=== PATIENT | female | born 1975 | race Caucasian/White ===

== ENCOUNTER → 2018-07-01 10:16 | Outpatient (CLI) | payer OTHER, SELFPAY | PROVIDERS: Family Provider Family Medicine; PCP Family Medicine; Visit Provider Obstetrics & Gynecology | DX: Z12.31 Encounter for screening mammogram for malignant neoplasm of breast (principal) | CPT/HCPCS: 77063; 77067 ==

== ENCOUNTER → 2019-07-03 08:50 | Outpatient (CLI) | payer OTHER, SELFPAY ==
--- NOTE | 2019-07-03 08:53 | BI_ITS ---
MAMMOGRAPHY - BILATERAL SCREENING REASON FOR EXAM: Female, 44 years old. Routine annual screening examination. PERTINENT HISTORY: Non-contributory. TECHNIQUE: Digital bilateral breast farhan (3D mammographic acquisition) in the CC and MLO projections. 2-D mediolateral oblique (MLO) and craniocaudad (CC) views of both breasts were obtained. CAD: Full Field Digital Mammography with Computer Added Detection was performed. COMPARISON: Comparison is made with prior study dated July 01, 2018 and June 30, 2017. FINDINGS: Breast Composition: The breasts are heterogeneously dense, which may obscure small masses. There are no dominant masses or suspicious calcifications. No other significant abnormalities are identified. There has been no significant change since the prior study. BI/SCREEN MAMM (CAD) W/FARHAN BILAT IMPRESSION: Stable bilateral screening mammogram. Yearly follow-up mammogram recommended. (A) ASSESSMENT CATEGORY: BIRADS Category 1: Negative. A letter regarding these results will be sent to the patient by the facility within 30 days. Approximately 10% of breast cancers are not detected by mammography. A normal mammogram should not delay biopsy of a clinically suspicious abnormality. [id number] Electronically Signed: Jesus Chiang, at 11:19 EDT , Service support ,
== END ==
PROVIDERS: Family Provider Family Medicine; PCP Family Medicine; Referring Provider Obstetrics & Gynecology; Visit Provider Obstetrics & Gynecology
DX: Z12.31 Encounter for screening mammogram for malignant neoplasm of breast (principal)
CPT/HCPCS: 77063; 77067

== ENCOUNTER → 2019-09-26 15:15 | Outpatient (CLI) | payer OTHER, SELFPAY ==
[2019-09-26 15:01] VITALS: BMI 35.5
[2019-09-26 16:16] LABS: Follicle Stimulating Hormone 5.7 mIU/mL
== END ==
PROVIDERS: Family Provider Family Medicine; PCP Family Medicine; Referring Provider Nurse Practitioner Women's Health; Visit Provider Nurse Practitioner Women's Health
DX: R23.2 Flushing (principal)
CPT/HCPCS: 36415; 83001

== ENCOUNTER → 2020-04-01 | Outpatient (CLI) | payer OTHER, SELFPAY ==
[2020-04-01 12:09] VITALS: BMI 35.5
[2020-04-01 15:53] LABS: Absolute Lymphocyte Count 2.82 X10^3/uL (0.83-4.51); Absolute Neutrophil Count 4.2 X10^3/uL (2.0-7.7); Basophil# 0.06 X10^3/uL; Basophil% 0.8 % (0-1); Eosinophil# 0.25 X10^3/uL; Eosinophils% 3.1 % (0-5); Hematocrit 43.2 % (37-47); Hemoglobin 14.3 g/dL (12.0-15.0); Lymphocyte # 2.82 X10^3/ul (4.0); Lymphocyte % 35.5 % (19-41); Mean Corp Hgb Conc 33.1 g/dL (32-36); Mean Corpuscular Hgb 29.1 pg (27.0-32.0); Mean Platelet Vol. 9.6 fl (6.2-12.0); Monocyte# 0.59 X10^3/uL; Monocyte% 7.4 % (0-10); NRBC Flagged by Analyzer 0 % (0-5); Neutrophil # 4.21 X10^3/uL (2.7-7.7); Neutrophil % 52.9 % (47-70); Platelet Count 297 K/mm3 (150-450); RBC Distribution Width CV 13.1 % (11.6-14.6); RBC Distribution Width SD 41.5 fl (35.1-43.9); Red Blood Count 4.91 M/mm3 (4.2-5.4)
[2020-04-01 17:12] LABS: ALB/GLOB Ratio 1.1 RATIO (0.9-2.4); AST(SGOT) 20 U/L (15-37); Alanine Aminotransfer ALT/SGPT 48 U/L (13-56); Albumin, Serum 3.9 g/dL (3.2-5.0); Alkaline Phosphatase 90 U/L (45-117); Anion Gap 7 (5-15); BUN 16 mg/dL (7-18); Calcium,Total 9.3 mg/dL (8.5-10.1); Chloride 106 mmol/L (98-107); Creatinine, Serum 0.84 mg/dL (0.55-1.02); EST Glomerular Filtration Rate 77 mL/min (>60); Est Glom Filt Rate - Afr Amer 93 mL/min (>60); Ferritin 90 ng/mL (8-252); Free T3 2.6 pg/mL (2.18-3.98); Globulin 3.7 g/dL (2.2-4.2); Glucose 81 mg/dL (74-106); Potassium 3.9 mmol/L (3.5-5.1); Protein, Total 7.6 g/dL (6.4-8.2); Sodium Level 139 mmol/L (136-145); T4 Free Direct 0.65 ng/dL (0.76-1.46); Thyroid Stim Hormone (TSH) 0.32 uIU/mL (0.358-3.74)
[2020-04-01 17:13] LABS: Vitamin B12 420 pg/mL (211-911); Vitamin D,25 Hydroxy 26.9 ng/mL
== END | disposition home or self-care (01) ==
PROVIDERS: PCP Family Medicine; Referring Provider Internal Medicine Endocrinology, Diabetes & Metabolism; Visit Provider Internal Medicine Endocrinology, Diabetes & Metabolism
DX: E03.8 Other specified hypothyroidism (principal); E06.3 Autoimmune thyroiditis; E55.9 Vitamin D deficiency, unspecified; R25.2 Cramp and spasm; R20.2 Paresthesia of skin
CPT/HCPCS: 80053; 82306; 82607; 82728; 84439; 84443; 84481; 85025

== ENCOUNTER → 2020-05-13 11:05 | Outpatient (CLI) | payer OTHER, SELFPAY ==
[2020-04-01 12:09] VITALS: BMI 35.5
[2020-05-13 12:57] LABS: T4 Free Direct 1.17 ng/dL (0.76-1.46); Thyroid Stim Hormone (TSH) 6.98 uIU/mL (0.358-3.74)
== END ==
PROVIDERS: PCP Family Medicine; Referring Provider Internal Medicine Endocrinology, Diabetes & Metabolism; Visit Provider Internal Medicine Endocrinology, Diabetes & Metabolism
DX: E03.8 Other specified hypothyroidism (principal); E06.3 Autoimmune thyroiditis
CPT/HCPCS: 36415; 84439; 84443

== ENCOUNTER → 2020-07-04 12:15 | Outpatient (CLI) | payer OTHER, SELFPAY ==
[2020-04-01 12:09] VITALS: BMI 35.5
--- NOTE | 2020-07-04 12:15 | BI_ITS ---
MAMMOGRAPHY - BILATERAL SCREENING REASON FOR EXAM: Female, 45 years old. Routine annual screening examination. PERTINENT HISTORY: Non-contributory. TECHNIQUE: Digital bilateral breast farhan (3D mammographic acquisition) in the CC and MLO projections. 2-D mediolateral oblique (MLO) and craniocaudad (CC) views of both breasts were obtained. CAD: Full Field Digital Mammography with Computer Added Detection was performed. COMPARISON: Comparison is made with prior study dated 07/03/2019 and 07/01/2018. FINDINGS: Breast Composition: The breasts are heterogeneously dense, which may obscure small masses. There are no dominant masses or suspicious calcifications. No other significant abnormalities are identified. There has been no significant change since the prior study. BI/SCREEN MAMM (CAD) W/FARHAN BILAT IMPRESSION: Stable bilateral screening mammogram. Yearly follow-up mammogram recommended. (A) ASSESSMENT CATEGORY: BIRADS Category 1: Negative. A letter regarding these results will be sent to the patient by the facility within 30 days. Approximately 10% of breast cancers are not detected by mammography. A normal mammogram should not delay biopsy of a clinically suspicious abnormality. [id number] Electronically Signed: Jesus Chiang, at 13:42 EDT , Service support ,
== END ==
PROVIDERS: PCP Family Medicine; Referring Provider Nurse Practitioner Women's Health; Visit Provider Nurse Practitioner Women's Health
DX: Z12.31 Encounter for screening mammogram for malignant neoplasm of breast (principal)
CPT/HCPCS: 77063; 77067

== ENCOUNTER → 2020-11-20 12:30 | Outpatient (CLI) | payer OTHER, SELFPAY ==
[2020-04-01 12:09] VITALS: BMI 35.5
--- NOTE | 2020-11-20 12:33 | RAD_ITS ---
STUDY: X-RAY CHEST REASON FOR EXAM: Female, 45 years old. CHRONIC COUGH. PT THINKS SHE HAD COVID IN FE. HX OF ASTHMA, CHEST PRESSURE, FEELS UNABLE TO TAKE A DEEP BREATH TECHNIQUE: PA and lateral views of the chest. COMPARISON: None. FINDINGS: The lungs are clear and expanded. There is no demonstrated pleural abnormality. Normal size heart. Normal mediastinum and deena. Normal visualized pulmonary arteries. Normal visualized aortic arch and descending thoracic aorta. Normal visualized thoracic spine. Normal visualized ribs, clavicles, and shoulders. There is no demonstrated abnormality of the visualized soft tissue structures of the upper abdomen. RAD/Chest PA and Lateral IMPRESSION: Normal x-ray examination of the chest. Electronically Signed: Grzegorz Esquivel MD ([place]) at 13:37 EST , Service support ,
== END ==
PROVIDERS: PCP Family Medicine; Referring Provider Otolaryngology; Visit Provider Otolaryngology
DX: R05 Cough (principal); R06.01 Orthopnea
CPT/HCPCS: 71046

== ENCOUNTER → 2021-03-20 13:30 | Outpatient (CLI) | payer OTHER, SELFPAY ==
[2021-03-20 12:56] VITALS: BMI 38.8
[2021-03-20 15:45] LABS: Follicle Stimulating Hormone 7.9 mIU/mL
== END ==
PROVIDERS: PCP Family Medicine; Referring Provider Nurse Practitioner Women's Health; Visit Provider Nurse Practitioner Women's Health
DX: R23.2 Flushing (principal)
CPT/HCPCS: 36415; 83001

== ENCOUNTER → 2021-05-06 13:52 | Outpatient (CLI) | payer OTHER, SELFPAY ==
[2021-03-20 12:56] VITALS: BMI 38.8
--- NOTE | 2021-05-06 13:54 | US_ITS ---
STUDY: ULTRASOUND OF THE FEMALE PELVIS - COMPLETE REASON FOR EXAM: Female, 45 years old. bloating LMP: TECHNIQUE: Transabdominal and Transvaginal TECHNICAL QUALITY: Adequate. COMPARISON: None. FINDINGS: Uterus absent compatible with hysterectomy. The right ovary is visualized. The right ovary measures 4.3 x 2.8 x 2.5 cm. Simple cysts the largest measuring 1.6 x 1.6 cm. There is no visualized right adnexal mass or complex lesion. There is normal arterial and normal venous vascularity. The left ovary is visualized. The left ovary measures 2.8 x 1.3 x 1.4 cm. There is no left ovarian cyst or ovarian mass. There is no visualized left adnexal mass or complex lesion. There is normal arterial and normal venous vascularity. There is no fluid in the cul-de-sac. The pre void volume of the bladder was 327 ml. Polycystic ovary disease: No. US/Pelvic (Non ) IMPRESSION: Normal pelvis status post partial hysterectomy. Right ovarian cysts compatible with physiologic cysts. Electronically Signed: Jose Cardenas MD at 6:36 EDT , Service support ,
--- NOTE | 2021-05-06 13:54 | US_ITS ---
STUDY: ULTRASOUND OF THE FEMALE PELVIS - COMPLETE REASON FOR EXAM: Female, 45 years old. bloating LMP: TECHNIQUE: Transabdominal and Transvaginal TECHNICAL QUALITY: Adequate. COMPARISON: None. FINDINGS: Uterus absent compatible with hysterectomy. The right ovary is visualized. The right ovary measures 4.3 x 2.8 x 2.5 cm. Simple cysts the largest measuring 1.6 x 1.6 cm. There is no visualized right adnexal mass or complex lesion. There is normal arterial and normal venous vascularity. The left ovary is visualized. The left ovary measures 2.8 x 1.3 x 1.4 cm. There is no left ovarian cyst or ovarian mass. There is no visualized left adnexal mass or complex lesion. There is normal arterial and normal venous vascularity. There is no fluid in the cul-de-sac. The pre void volume of the bladder was 327 ml. Polycystic ovary disease: No. US/Transvaginal Non- IMPRESSION: Normal pelvis status post partial hysterectomy. Right ovarian cysts compatible with physiologic cysts. Electronically Signed: Jose Cardenas MD at 6:36 EDT , Service support ,
== END ==
PROVIDERS: PCP Family Medicine; Referring Provider Nurse Practitioner Women's Health; Visit Provider Nurse Practitioner Women's Health
DX: R14.0 Abdominal distension (gaseous) (principal)
CPT/HCPCS: 76830; 76856

== ENCOUNTER → 2021-07-07 15:11 | Outpatient (CLI) | payer OTHER, SELFPAY ==
[2021-03-05 15:48] VITALS: BMI 35.5
[2021-03-20 12:56] VITALS: BMI 38.8
--- NOTE | 2021-07-07 15:15 | BI_ITS ---
MAMMOGRAPHY - BILATERAL SCREENING REASON FOR EXAM: Female, 46 years old. Routine annual screening examination. PERTINENT HISTORY: Non-contributory. TECHNIQUE: Digital bilateral breast farhan (3D mammographic acquisition) in the CC and MLO projections. 2-D mediolateral oblique (MLO) and craniocaudad (CC) views of both breasts were obtained. CAD: Full Field Digital Mammography with Computer Added Detection was performed. COMPARISON: Comparison is made with prior study 07/04/2020 and 07/03/2019. FINDINGS: Breast Composition: The breasts are heterogeneously dense, which may obscure small masses. Possible focal area of the increased density in the central deep aspect of the left breast. The patient will be recalled for additional views including 90 degree lateral and compressive craniocaudad views. No other significant abnormalities are identified. BI/SCRN MAMM (CAD)W/FARHAN BILAT IMPRESSION: Stable bilateral screening mammogram. Yearly follow-up mammogram recommended. (A) Recall Side: Left Breast ASSESSMENT CATEGORY: BIRADS Category 0: Incomplete. Need additional imaging evaluation. A letter regarding these results will be sent to the patient by the facility within 30 days. Approximately 10% of breast cancers are not detected by mammography. A normal mammogram should not delay biopsy of a clinically suspicious abnormality. [id number] Electronically Signed: Jesus Chiang MD at 15:59 EDT , Service support ,
== END ==
PROVIDERS: PCP Family Medicine; Referring Provider Nurse Practitioner Women's Health; Visit Provider Nurse Practitioner Women's Health
DX: Z12.31 Encounter for screening mammogram for malignant neoplasm of breast (principal)
CPT/HCPCS: 77063; 77067

== ENCOUNTER → 2021-07-10 14:22 | Outpatient (CLI) | payer OTHER, SELFPAY ==
[2021-03-20 12:56] VITALS: BMI 38.8
--- NOTE | 2021-07-10 14:24 | US_ITS ---
STUDY: ULTRASOUND BREAST - LEFT REASON FOR EXAM: Female, 46 years old. Abnormal screening mammogram. TECHNIQUE: Axial and longitudinal images of the LEFT breast were performed with a high resolution ultrasound transducer. # OF IMAGES: 39 COMPARISON: Comparison is made with prior mammogram dated 07/07/2021 and prior mammogram done earlier today. FINDINGS: LEFT Breast: Dense fibroglandular tissue. Focally dilated ducts at the 11 o''clock position of the breast at 3 cm from the nipple. US/Breast Limited Unilateral IMPRESSION: Focally dilated ducts. Routine mammographic follow up is recommended. ASSESSMENT CATEGORY: BIRADS Category 2: Benign. A letter regarding these results will be sent to the patient by the facility within 30 days. Electronically Signed: Jesus Chiang MD at 15:33 EDT , Service support ,
--- NOTE | 2021-07-10 14:24 | BI_ITS ---
MAMMOGRAPHY - UNILATERAL DIAGNOSTIC: LEFT BREAST REASON FOR EXAM: Female, 46 years old. Abnormal screening mammogram. PERTINENT HISTORY: Non-contributory. TECHNIQUE: Compression views of the left breast in the mediolateral oblique and craniocaudad views were obtained. CAD: Full Field Digital Mammography with Computer Added Detection was performed. COMPARISON: Comparison is made with prior mammogram dated 07/07/2021. FINDINGS: Breast Composition: The breasts are heterogeneously dense, which may obscure small masses. There are no dominant masses or suspicious calcifications. No abnormalities seen at this time. Correlation with ultrasound is recommended. No other significant abnormalities are identified. BI/DIAG MAMM W/CAD, UNILAT IMPRESSION: No mammographic abnormality is seen at this time. Correlation with ultrasound is recommended. ASSESSMENT CATEGORY: BIRADS Category 0: Incomplete. Need additional imaging evaluation. A letter regarding these results will be sent to the patient by the facility within 30 days. Approximately 10% of breast cancers are not detected by mammography. A normal mammogram should not delay biopsy of a clinically suspicious abnormality. Electronically Signed: Jesus Chiang MD at 15:18 EDT , Service support ,
== END ==
PROVIDERS: PCP Family Medicine; Referring Provider Nurse Practitioner Women's Health; Visit Provider Nurse Practitioner Women's Health
DX: R92.2 Inconclusive mammogram (principal)
CPT/HCPCS: 76642; 77065

== ENCOUNTER 2021-11-25 10:39 | Outpatient (CLI) | payer OTHER, SELFPAY ==
[2021-11-25 12:40] LABS: Absolute Lymphocyte Count 2.42 X10^3/uL (0.83-4.51); Absolute Neutrophil Count 5.3 X10^3/uL (2.0-7.7); Basophil# 0.07 X10^3/uL; Basophil% 0.8 % (0-1); Eosinophil# 0.29 X10^3/uL; Eosinophils% 3.3 % (0-5); Hematocrit 43.1 % (37-47); Hemoglobin 14.3 g/dL (12.0-15.0); Lymphocyte # 2.42 X10^3/ul (0.83-4.51); Lymphocyte % 27.9 % (19-41); Mean Corp Hgb Conc 33.2 g/dL (32-36); Mean Corpuscular Hgb 29.1 pg (27.0-32.0); Mean Corpuscular Volume 87.6 fL (81-99); Mean Platelet Vol. 9.1 fl (6.2-12.0); Monocyte# 0.54 X10^3/uL; Monocyte% 6.2 % (0-10); NRBC Flagged by Analyzer 0 % (0-5); Neutrophil # 5.31 X10^3/uL (2.7-7.7); Neutrophil % 61.2 % (47-70); Platelet Count 308 K/mm3 (150-450); RBC Distribution Width CV 12.8 % (11.6-14.6); Red Blood Count 4.92 M/mm3 (4.2-5.4); White Blood Count 8.7 K/mm3 (4.4-11.0)
[2021-11-25 13:04] LABS: ALB/GLOB Ratio 0.9 RATIO (0.9-2.4); AST(SGOT) 28 U/L (15-37); Alanine Aminotransfer ALT/SGPT 73 U/L (13-56); Albumin, Serum 3.6 g/dL (3.2-5.0); Alkaline Phosphatase 117 U/L (45-117); Anion Gap 9 (5-15); BUN 16 mg/dL (7-18); BUN/Creat Ratio 18.6 RATIO (10-20); Calcium,Total 8.9 mg/dL (8.5-10.1); Chloride 102 mmol/L (98-107); Creatinine, Serum 0.86 mg/dL (0.55-1.02); EST Glomerular Filtration Rate 75 mL/min (>60); Est Glom Filt Rate - Afr Amer 90 mL/min (>60); Ferritin 138 ng/mL (8-252); Globulin 4.1 g/dL (2.2-4.2); Glucose 110 mg/dL (74-106); Potassium 4.1 mmol/L (3.5-5.1); Protein, Total 7.7 g/dL (6.4-8.2); Sodium Level 138 mmol/L (136-145); Thyroid Stim Hormone (TSH) 1.74 uIU/mL (0.358-3.74)
[2021-11-26 14:01] LABS: Thyroid Peroxidase AB 39 IU/mL (0-34)
[2021-11-26 16:29] LABS: Anti-Nuclear Antibody Test Negative (.)
== END 2021-11-25 23:59 | disposition short-term general hospital (02) ==
LOC: MTLAB 10:41
PROVIDERS: PCP Family Medicine; Referring Provider Physician Assistant; Visit Provider Physician Assistant
DX: D64.9 Anemia, unspecified (principal); L70.0 Acne vulgaris; L71.8 Other rosacea
CPT/HCPCS: 36415; 80053; 82728; 84443; 85025; 86038; 86376

== ENCOUNTER → 2022-07-09 | Outpatient (CLI) | payer OTHER, SELFPAY ==
--- NOTE | 2022-07-09 15:51 | BI_ITS ---
MAMMOGRAPHY - BILATERAL SCREENING REASON FOR EXAM: Female, 47 years old. Routine annual screening examination. PERTINENT HISTORY: Non-contributory. TECHNIQUE: Digital bilateral breast farhan (3D mammographic acquisition) in the CC and MLO projections. 2-D mediolateral oblique (MLO) and craniocaudad (CC) views of both breasts were obtained. CAD: Full Field Digital Mammography with Computer Added Detection was performed. COMPARISON: Comparison is made with prior study dated 07/07/2021 and 07/04/2020. FINDINGS: Breast Composition: The breasts are heterogeneously dense, which may obscure small masses. Persistent asymmetry of breast tissue or more breast tissue is seen in the central upper aspect of the left breast. Correlation with ultrasound recommended. No other significant abnormalities are identified. BI/SCRN MAMM (CAD)W/FARHAN BILAT IMPRESSION: Stable examination. Correlation with ultrasound of the left breast recommended. ASSESSMENT CATEGORY: BIRADS Category 0: Incomplete. Need additional imaging evaluation. A letter regarding these results will be sent to the patient by the facility within 30 days. Approximately 10% of breast cancers are not detected by mammography. A normal mammogram should not delay biopsy of a clinically suspicious abnormality. [id number] Electronically Signed: Jesus Chiang MD at 8:14 EDT ,
== END | disposition home or self-care (01) ==
LOC: OPBI 15:48
PROVIDERS: PCP Family Medicine; Visit Provider Nurse Practitioner Women's Health
DX: Z12.31 Encounter for screening mammogram for malignant neoplasm of breast (principal); N64.89 Other specified disorders of breast
CPT/HCPCS: 77063; 77067

== ENCOUNTER → 2022-07-14 | Outpatient (CLI) | payer OTHER, SELFPAY ==
--- NOTE | 2022-07-14 15:05 | US_ITS ---
STUDY: ULTRASOUND BREAST - LEFT REASON FOR EXAM: Female, 47 years old. Asymmetrical density in the central upper aspect of the left breast. TECHNIQUE: Axial and longitudinal images of the LEFT breast were performed with a high resolution ultrasound transducer. # OF IMAGES: 33 COMPARISON: Comparison is made with prior sonogram dated 07/10/2021 and prior mammogram dated 07/09/2022. FINDINGS: LEFT Breast: At the 12 o''clock position of breast 3 cm from nipple, is a cluster of cysts measuring 1.5 cm x 1 cm. Is also evidence of dilated ducts. US/Breast Limited Unilateral IMPRESSION: 1. Dilated ducts and cluster of cysts. ASSESSMENT CATEGORY: BIRADS Category 2: Benign. A letter regarding these results will be sent to the patient by the facility within 30 days. Electronically Signed: Jesus Chiang MD at 9:03 EDT ,
== END | disposition home or self-care (01) ==
LOC: OPUS 15:02
PROVIDERS: PCP Family Medicine; Visit Provider Nurse Practitioner Women's Health
DX: N60.02 Solitary cyst of left breast (principal)
CPT/HCPCS: 76642

== ENCOUNTER 2023-06-15 06:33 | Day surgery (SDC) | payer OTHER, SELFPAY ==
--- NOTE | 2023-06-15 | GASB_PTH ---
PATIENT: KIERSTEN HOOKER LOC: EN U#:[id number] AGE/SX: 48/F ROOM: RE06/15/[address]: Dr. Zack Villanueva MD : 1975 BED: DIS: 06/15/2023 SPEC #: [id number] RECD: 06/15/23 10:42 STATUS: ERIC CHASEClaudia #: [id number] MANDI: 06/15/23 00:[address]: Zack Villanueva DEPT: SURGICAL PATHOLOGY RECD BY: Amor Pineda ENTERED: 06/15/23 10:42 SP TYPE: Gastric Bx OTHR DR: Dr. Gerardo Godoy MD Tissues: Gastric mucous membrane Procedures: Surgery Specimen Level IV HEADER OPERATION: Colonoscopy, EGD ([facility]), PH probe placement, biopsy PRE-OP DIAGNOSIS: Screening, GERD TISSUE SUBMITTED: Antrum biopsy for histo and H. pylori MICROSCOPIC DIAGNOSIS Antrum, biopsy: Mild gastritis. See comment. SJ:wiley 06/16/2023 COMMENT Immunohistochemistry ([id number]) supports the above diagnosis. MICROSCOPIC DESCRIPTION Slides are reviewed. The specimen shows fragments of gastric mucosa with chronic inflammatory cell infiltrates in the lamina propria consisting of lymphocytes and plasma cells, consistent with mild chronic gastritis. GROSS DESCRIPTION Received in fixative is one container labeled with the patient's name and designated antrum biopsy. The specimen consists of two irregular fragments of light khan soft tissue that in aggregate measure 0.6 x 0.3 x 0.1 cm. The specimen is totally submitted in one cassette. / ANGEL LUIS:wiley 06/15/2023 TC:3 CPT: 30349
--- NOTE | 2023-06-15 06:41 | HP.PCM_ITS ---
History and Physical Date of Admission: 06/15/23 Intake Vital Signs 05/12/2314:27 Height 5 ft 5 in Weight: 222 lb 8 oz BMI 37.0 BP 136/84 H Blood Pressure Location Lt brachial Position Sitting Respiration 18 Pulse 65 Pulse Source Monitor Pulse Oximetry (%) 100 Oxygen Delivery Method room air Intake Visit Reasons: C-Scope & EGD Chief Complaint: cscope/EGD consult Principal Administrative Clerk Required: No Is patient in pain?: No Allergies Penicillins Allergy (Verified 05/12/23 14:30) Unknown Medications albuterol sulfate 90 mcg/actuation aerosol inhaler 2 puff inhalation Q6H PRN PRN Asthma 03/24/16 [History Confirmed 05/12/23] esomeprazole magnesium 40 mg capsule,delayed release 40 mg PO QHS 03/24/16 [History Confirmed 05/12/23] fluticasone propionate 230 mcg-salmeterol 21 mcg/actuation HFA inhaler 2 puff inhalation BID 04/01/20 [History Confirmed 05/12/23] burburine PO 03/23/22 [History Confirmed 04/21/23] cholecalciferol (vitamin D3) 50 mcg (2,000 unit) capsule 50 mcg PO DAILY 03/23/22 [History Confirmed 05/12/23] copper gluconate 2 mg capsule 2 mg PO DAILY 03/23/22 [History Confirmed 05/12/23] magnesium oxide 500 mg capsule 500 mg PO DAILY 03/23/22 [History Confirmed 05/12/23] thyroid (pork) 180 mg tablet ([place] Thyroid) 240 mg PO DAILY 03/23/22 [History Confirmed 05/12/23] vitamin K2 45 mcg capsule 45 mcg PO DAILY 03/23/22 [History Confirmed 05/12/23] zinc 50 mg tablet 50 mg PO DAILY 03/23/22 [History Confirmed 05/12/23] semaglutide 1 mg/dose (2 mg/1.5 mL) subcutaneous pen injector (Ozempic) 1 mg subcut QWEEK 04/21/23 [History Confirmed 05/12/23] [facility] Medical History (Updated 05/12/23 @ 14:[address] 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 She is also here for screening colonoscopy. She reports that she has had severe reflux for years only [employer] works. She describes reflux as well as epigastric pain. She says she has a lot of stress. She denies nausea or vomiting. She denies any blood in her stool. ROS General General: Yes weight change and fatigue; No appetite, colon cancer, breast cancer or weakness HEENT HEENT: Yes difficulty swallowing, eye injury, eye surgery and swollen glands; No hoarseness Endo Endocrine: Yes thyroid disease; No diabetes mellitus, thyroid cancer, Hair loss, heat intolerance or cold intolerance Skin Skin: No rash or changing moles Breast Breast: No left breast lump, right breast lump, nipple discharge, breast pain, abnormal mammogram, abnormal US or breast enlargement Musc Musculoskeletal: Yes back problems; No arthritis, rheumatoid arthritis, gout or joint pain Cardio Cardiovascular: No murmur, pacemaker, heart disease, atrial fibrillation, high blood pressure, heart attack, heart stent, palpitations, shortness of breat with exertion or chest pain Psych Psychiatric: No depression, anxiety or hearing voices Resp Respiratory: No shortness of breath, No sleep apnea, No cough, No COPD, Yes asthma, No emphysema and No wheezing Gastro Gastrointestinal: No abdominal pain, No nausea or vomiting, No diarrhea, No constipation, No blood in stool, Yes acid reflux, No hemorrhoids, No ulcers, No gallbladder problem and No black,tarry stools Deejay Hematologic: No blood thinners, No blood disorders, No bleeding, No anemia and No blood clots Neuro Neurologic: No system reviewed and no additional complaints, except as documented, No as per HPI, No abnormal gait, No abnormal hearing, No abnormal movements, No abnormal speech, No behavioral changes, No burning sensations, No confusion, No convulsions, No disequilibrium, No dizziness, No localized weakness, No frequent falls, No headache(s), No lack of coordination, No loss of vision, No memory loss, No numbness, No other visual disturbances, No radicular pain, No restless legs, No sensory deficit, No syncope, No tingling, No tremor(s), No weakness and No other Exam Const General: cooperative Orientation: alert and oriented x3 HENIN Head: normal to inspection Neck Neck: normal visual inspection and full ROM Chest Chest palpation & inspection: normal inspection of the chest Resp Effort & Inspection: normal respiratory effort Auscultation: clear to auscultation bilaterally Cardio Rate: regular rate Rhythm: regular rhythm GI Inspection: non-distended Palpation: soft and nontender Skin General: no rashes or lesions noted Neuro General: patient alert and patient oriented x3 Extrem General: full ROM Psych Appearance: grossly normal Mental Status: mental status grossly normal Assessment and Plan Assessment and Plan (1) Screen for colon cancer: Status: Acute (2) GERD (gastroesophageal reflux disease): Status: Acute Qualifiers: Esophagitis presence: esophagitis presence not specified Qualified Code(s): K21.9 - Gastro-esophageal reflux disease without esophagitis Orders: Orders Colonoscopy Today EGD with 48 pH probe Today Plan Patient reports she has severe GERD and takes Nexium daily. She reports she now cannot get off Nexium and any other PPIs she tries does not work. I will perform EGD and I briefly discussed fundoplication so I will perform a pH probe as well as part of the preoperative work-up. Patient is also due for screening colonoscopy so I will order that for her as she has never had a colonoscopy. I explained endoscopy in detail to the patient. I explained the risks including but not limited to stroke or heart attack with anesthesia, perforation of the GI tract, bleeding, infection. I explained that any of these could necessitate further emergency surgery. The patient understands and all questions were answered sufficiently. The patient wishes to proceed with procedure. Zack Villanueva MD Pager: [facility] [address] [place] [address], [address] [place] [address] Office: I have seen and examined the patient and reviewed the H&P, there are no changes since prior exam
[2023-06-15 07:10] VITALS: BP 140/77; PULSE 84; RESP 16; TEMP 36.4; O2SAT 95; BMI 36.0
[2023-06-15] MEDS: Lactated Ringers 1,000 ML 15 ML IV (07:14)
--- NOTE | 2023-06-15 07:30 | IMM_PTH ---
PATIENT: KIERSTEN HOOKER LOC: EN U#:[id number] AGE/SX: 48/F ROOM: RE06/15/[address]: Dr. Zack Villanueva MD : 1975 BED: DIS: 06/15/2023 SPEC #: [id number] RECD: 06/15/23 13:46 STATUS: ERIC REClaudia #: [id number] MANDI: 06/15/23 07:[address]: Zack Villanueva DEPT: IMMUNOHISTOCHEMISTRY RECD BY: Claudia Leigh ENTERED: 06/15/23 13:47 SP TYPE: IMMUNO OTHR DR: Dr. Gerardo Godoy MD Tissues: Stomach, NOS Procedures: H Pylori (initial) PHYSICIAN & INSTITUTION [place] [id number] SPECIMEN INFORMATION: Tissue Source: Antrum Clinical Info: Screening, GERD Specimen Number: [id number] CPT code: 80660 METHODOLOGY: Deparaffinized sections of prefer/formalin-fixed tissue or PAP/DQ stained slides are incubated with monoclonal/polyclonal antibodies/oligonucleotide probes. Localization is made via biotin free immunoperoxidase method. Appropriate controls are performed and reacted as expected. Results on target cell population are indicated in the following table: RESULTS: ANTIBODY / CLONE RESULT H Pylori (polyclonal) negative These tests were developed and their performance characteristics determined by [facility]. They may not have been cleared or approved by the U.S. Food and Drug Administration. The FDA has determined that such clearance or approval is not necessary. The above immunohistochemical/dualISH markers are ordered and reviewed by the Pathologist. INTERPRETATION: Antrum, biopsy: Negative for Helicobacter pylori organisms. SJ:wiley 06/17/2023
[2023-06-15 08:05] VITALS: BP 108/68; BP 140/77; PULSE 91; RESP 16; TEMP 36.3; O2SAT 95
--- NOTE | 2023-06-15 08:09 | OP.CCLET_ITS ---
06/15/2023 Gerardo Godoy Re : Upper GI endoscopy procedure for Milagro Rae Dear Jayne This procedure was performed on Thursday, June 15, 2023. My impressions and recommendations are as follows: Impressions : - Normal esophagus. - Normal stomach. - Normal examined duodenum. - Small hiatal hernia. - Biopsies were taken with a cold forceps for Helicobacter pylori testing. - The [place] pH capsule was positioned 29 cm from the incisors, which was 6 cm proximal to the GE junction. Recommendations : - Discharge patient to home. - Resume previous diet. - Continue present medications. My findings are described in the full procedure note, which is enclosed. If I can be of further assistance, please feel free to contact me at Doctor phone number(s): , Work: . Sincerely, Zack Villanueva MD 06/15/2023 8:08:56 AM This report has been signed electronically.
--- NOTE | 2023-06-15 08:09 | OP.EGD_ITS ---
Patient Name: Milagro Rae Procedure Date: 06/15/2023 7:31 AM Date of : 1975 Age: 48 Procedure: Upper GI endoscopy Indications: Reflux esophagitis, Suspected gastro-esophageal reflux disease Providers: Zack Villanueva MD Referring MD: Gerardo Godoy Medicines: Monitored Anesthesia Care Patient Profile: This is a 48 year old female. Refer to note in patient chart for documentation of history and physical. Complications: No immediate complications. Estimated blood loss: Minimal. Procedure: Pre-Anesthesia Assessment: - Prior to the procedure, a History and Physical was performed, and patient medications and allergies were reviewed. The patient's tolerance of previous anesthesia was also reviewed. The risks and benefits of the procedure and the sedation options and risks were discussed with the patient. All questions were answered, and informed consent was obtained. Prior Anticoagulants: The patient has taken no previous anticoagulant or antiplatelet agents. After reviewing the risks and benefits, the patient was deemed in satisfactory condition to undergo the procedure. After obtaining informed consent, the endoscope was passed under direct vision. Throughout the procedure, the patient's blood pressure, pulse, and oxygen saturations were monitored continuously. The Endoscope was introduced through the mouth, and advanced to the third part of duodenum. The upper GI endoscopy was accomplished without difficulty. The patient tolerated the procedure well. Scope In: 7:36:25 AM Scope Out: 7:40:45 AM Total Procedure Duration Time 0 hours 4 minutes 20 seconds Findings: The esophagus was normal. The stomach was normal. The examined duodenum was normal. A small hiatal hernia was present. Biopsies were taken with a cold forceps in the gastric antrum for Helicobacter pylori testing. The [place] capsule with delivery system was introduced through the mouth and advanced into the esophagus, such that the [place] pH capsule was positioned 29 cm from the incisors, which was 6 cm proximal to the GE junction. Suction was applied to the well of the [place] pH capsule to suck in the adjacent mucosa of the esophagus using the external vacuum pump set at a minimum vacuum pressure of 550 mmHg for 30 seconds. The [place] pH capsule was then deployed by depressing the plunger on top of the handle to advance the locking pin into the mucosa, thereby attaching the capsule to the esophagus. The plunger was then rotated a quarter turn clockwise to release the capsule from the delivery system. The delivery system was then withdrawn. Endoscopy was utilized for probe placement and diagnostic evaluation. Impression: - Normal esophagus. - Normal stomach. - Normal examined duodenum. - Small hiatal hernia. - Biopsies were taken with a cold forceps for Helicobacter pylori testing. - The [place] pH capsule was positioned 29 cm from the incisors, which was 6 cm proximal to the GE junction. Recommendation: - Discharge patient to home. - Resume previous diet. - Continue present medications. Procedure Code(s): --- Professional --- 67883, Esophagogastroduodenoscopy, flexible, transoral; with biopsy, single or multiple Diagnosis Code(s): --- Professional --- K44.9, Diaphragmatic hernia without obstruction or gangrene K21.0, Gastro-esophageal reflux disease with esophagitis CPT copyright 2017 [employer]. All rights reserved. The codes documented in this report are preliminary and upon remote coders review may be revised to meet current compliance requirements. Zack Villanueva MD 06/15/2023 8:08:56 AM This report has been signed electronically. Number of Addenda: 0 Note Initiated On: 06/15/2023 7:31 AM
[2023-06-15 08:10] VITALS: BP 105/73; BP 140/77; PULSE 80; RESP 16; O2SAT 96
--- NOTE | 2023-06-15 08:11 | OP.COLON_ITS ---
Patient Name: Milagro Rae Procedure Date: 06/15/2023 7:43 AM Date of : 1975 Age: 48 Procedure: Colonoscopy Indications: Screening for colorectal malignant neoplasm Providers: Zack Villanueva MD Referring MD: Gerardo Godoy Medicines: Monitored Anesthesia Care Patient Profile: This is a 48 year old female. Refer to note in patient chart for documentation of history and physical. Last Colonoscopy: none. The patient's first colonoscopy is today. Complications: No immediate complications. Procedure: Pre-Anesthesia Assessment: - Prior to the procedure, a History and Physical was performed, and patient medications and allergies were reviewed. The patient's tolerance of previous anesthesia was also reviewed. The risks and benefits of the procedure and the sedation options and risks were discussed with the patient. All questions were answered, and informed consent was obtained. Prior Anticoagulants: The patient has taken no previous anticoagulant or antiplatelet agents. After reviewing the risks and benefits, the patient was deemed in satisfactory condition to undergo the procedure. After I obtained informed consent, the scope was passed under direct vision. Throughout the procedure, the patient's blood pressure, pulse, and oxygen saturations were monitored continuously. The pediatric colonoscope was introduced through the anus and advanced to the cecum, identified by appendiceal orifice and ileocecal valve. The colonoscopy was performed without difficulty. The patient tolerated the procedure well. The quality of the bowel preparation was adequate. Scope In: 7:44:53 AM Scope Withdrawal Time 0 hours 6 minutes 15 seconds Scope Out: 7:59:14 AM Total Procedure Duration Time 0 hours 14 minutes 21 seconds Findings: The entire examined colon appeared normal on direct and retroflexion views. Impression: - The entire examined colon is normal on direct and retroflexion views. - No specimens collected. Recommendation: - Discharge patient to home. - Resume previous diet. - Continue present medications. - Repeat colonoscopy in 10 years for screening purposes. Procedure Code(s): --- Professional --- 27848, Colonoscopy, flexible; diagnostic, including collection of specimen(s) by brushing or washing, when performed (separate procedure) Diagnosis Code(s): --- Professional --- Z12.11, Encounter for screening for malignant neoplasm of colon CPT copyright 2017 [employer]. All rights reserved. The codes documented in this report are preliminary and upon director of religious activities review may be revised to meet current compliance requirements. Zack Villanueva MD 06/15/2023 8:10:43 AM This report has been signed electronically. Number of Addenda: 0 Note Initiated On: 06/15/2023 7:43 AM
--- NOTE | 2023-06-15 08:11 | OP.CCLET_ITS ---
06/15/2023 Gerardo Godoy Re : Colonoscopy procedure for Milagro Rae Dear Jayne This procedure was performed on Thursday, June 15, 2023. My impressions and recommendations are as follows: Impressions : - The entire examined colon is normal on direct and retroflexion views. - No specimens collected. Recommendations : - Discharge patient to home. - Resume previous diet. - Continue present medications. - Repeat colonoscopy in 10 years for screening purposes. My findings are described in the full procedure note, which is enclosed. If I can be of further assistance, please feel free to contact me at Doctor phone number(s): , Work: . Sincerely, Zack Villanueva MD 06/15/2023 8:10:43 AM This report has been signed electronically.
[2023-06-15 08:15] VITALS: BP 103/68; BP 140/77; PULSE 74; RESP 16; O2SAT 97
[2023-06-15 08:19] VITALS: BP 104/61; BP 140/77; PULSE 74; RESP 16; TEMP 36.5; O2SAT 96
[2023-06-15 08:25] VITALS: BP 140/77
== END 2023-06-15 08:53 | disposition home or self-care (01) ==
LOC: EN 06:33 → AC 06:34
PROVIDERS: PCP Family Medicine; Referring Provider Family Medicine; Visit Provider Surgery
PROC: 0DJD8ZZ Inspection of Lower Intestinal Tract, Via Natural or Artificial Opening Endoscopic (ICD-10-PCS; CPT 45378; principal; 2023-06-15 07:25)
DX: Z12.11 Encounter for screening for malignant neoplasm of colon (principal); K21.00 Gastro-esophageal reflux disease with esophagitis, without bleeding; K29.70 Gastritis, unspecified, without bleeding; K44.9 Diaphragmatic hernia without obstruction or gangrene; E06.3 Autoimmune thyroiditis; Z79.899 Other long term (current) drug therapy; Z87.891 Personal history of nicotine dependence; Z80.0 Family history of malignant neoplasm of digestive organs
CPT/HCPCS: 45378; 43235; 88305; 88342; J7120; J2405

== ENCOUNTER 2023-07-02 08:34 | Day surgery (SDC) | payer OTHER, SELFPAY ==
[2023-07-02 08:47] VITALS: BP 110/82; PULSE 83; RESP 15; TEMP 36.9; O2SAT 97
== END 2023-07-02 23:59 | disposition home or self-care (01) ==
PROVIDERS: PCP Family Medicine; Referring Provider Surgery; Visit Provider Surgery
PROC: F00ZJWZ Instrumental Swallowing and Oral Function Assessment using Swallowing Equipment (ICD-10-PCS; CPT 43235; principal; 2023-07-02 10:25)
DX: K21.9 Gastro-esophageal reflux disease without esophagitis (principal)
CPT/HCPCS: 91010

== ENCOUNTER → 2023-07-16 | Outpatient (CLI) | payer OTHER, SELFPAY ==
--- NOTE | 2023-07-16 15:18 | BI_ITS ---
MAMMOGRAPHY - BILATERAL SCREENING REASON FOR EXAM: Female, 48 years old. Routine annual screening examination. PERTINENT HISTORY: Non-contributory. TECHNIQUE: Digital bilateral breast farhan (3D mammographic acquisition) in the CC and MLO projections. 2-D mediolateral oblique (MLO) and craniocaudad (CC) views of both breasts were obtained. CAD: Full Field Digital Mammography with Computer Added Detection was performed. COMPARISON: Comparison is made with prior study dated July 09, 2022 and July 10, 2021. FINDINGS: Breast Composition: The breasts are heterogeneously dense, which may obscure small masses. Questionable 1.5 cm x 1 cm nodular density in the upper deep central portion of the left breast. Correlation with ultrasound is recommended. No other significant abnormalities are identified. BI/SCRN MAMM (CAD)W/FARHAN BILAT IMPRESSION: Possible 1.5 cm x 1 7 nodular density in the upper deep central portion of the left breast. Correlation with ultrasound is recommended. ASSESSMENT CATEGORY: BIRADS Category 0: Incomplete. Need additional imaging evaluation. A letter regarding these results will be sent to the patient by the facility within 30 days. Approximately 10% of breast cancers are not detected by mammography. A normal mammogram should not delay biopsy of a clinically suspicious abnormality. [id number] Electronically Signed: Jesus Chiang MD at 12:37 EDT ,
== END | disposition home or self-care (01) ==
LOC: OPBI 15:17
PROVIDERS: PCP Family Medicine; Referring Provider Nurse Practitioner Women's Health; Visit Provider Nurse Practitioner Women's Health
DX: Z12.31 Encounter for screening mammogram for malignant neoplasm of breast (principal)
CPT/HCPCS: 77063; 77067

== ENCOUNTER → 2023-07-21 | Outpatient (CLI) | payer OTHER, SELFPAY ==
--- NOTE | 2023-07-21 15:01 | US_ITS ---
STUDY: ULTRASOUND BREAST - LEFT REASON FOR EXAM: Female, 48 years old. Abnormal screening mammogram. TECHNIQUE: Axial and longitudinal images of the LEFT breast were performed with a high resolution ultrasound transducer. # OF IMAGES: 71 COMPARISON: Comparison is made with prior mammogram dated July 16, 2023 and prior ultrasound of the left breast dated July 14, 2022. FINDINGS: LEFT Breast: There is a 1.1 cm x 1.3 cm x 0.8 cm cluster of septated cysts at the 11:00 addition of the breast at 4 cm from nipple. This is essentially unchanged. There is also evidence of a 6 mm x 6 mm x 4 mm cyst at the 9:00 position of the breast at 4 cm from nipple. US/Breast Limited Unilateral IMPRESSION: 2 small cysts are seen in the upper outer quadrant of the left breast. ASSESSMENT CATEGORY: BIRADS Category 2: Benign. A letter regarding these results will be sent to the patient by the facility within 30 days. Electronically Signed: Jesus Chiang MD at 10:59 EDT ,
== END | disposition home or self-care (01) ==
LOC: OPUS 14:59
PROVIDERS: PCP Family Medicine; Referring Provider Nurse Practitioner Women's Health; Visit Provider Nurse Practitioner Women's Health
DX: N63.20 Unspecified lump in the left breast, unspecified quadrant (principal)
CPT/HCPCS: 76642

== ENCOUNTER 2023-07-23 09:38 | Observation (INO) | payer OTHER, SELFPAY ==
[2023-07-19 15:07] LABS: Hematocrit 43.1 % (37-47); Mean Corp Hgb Conc 32.5 g/dL (32-36); Mean Corpuscular Volume 89.4 fL (81-99); Mean Platelet Vol. 9.3 fl (6.2-12.0); Platelet Count 338 K/mm3 (150-450); RBC Distribution Width CV 12.3 % (11.6-14.6); RBC Distribution Width SD 40.8 fl (35.1-43.9); Red Blood Count 4.82 M/mm3 (4.2-5.4); White Blood Count 9.9 K/mm3 (4.4-11.0)
[2023-07-19 15:16] LABS: Partial Thromboplast Time 29.4 Seconds (24.1-36.2)
[2023-07-19 16:00] LABS: AST(SGOT) 25 U/L (15-37); Alanine Aminotransfer ALT/SGPT 39 U/L (13-56); Albumin, Serum 3.9 g/dL (3.2-5.0); Alkaline Phosphatase 83 U/L (45-117); Bilirubin, Direct 0.09 mg/dL (0.00-0.30); Globulin 3.6 g/dL (2.2-4.2); Protein, Total 7.5 g/dL (6.4-8.2); Thyroid Stim Hormone (TSH) 0.07 uIU/mL (0.358-3.74)
[2023-07-23] VITALS (12 sets, daily range): BP systolic 102–126; BP diastolic 59–79; PULSE 52–92; RESP 14–18; TEMP 36.2–36.9; O2SAT 94–100; BMI 35.8
--- NOTE | 2023-07-23 06:32 | PCM.HP.BLA ---
History and Physical Date of Admission: 07/23/23 Intake Vital Signs 06/15/2307:10 Height 5 ft 5 in Intake Visit Reasons: 2 WK F/U SCOPES Chief Complaint: 2 week f/u scopes Is patient in pain?: No Allergies Penicillins Allergy (Verified 06/30/23 08:58) Unknown Medications albuterol sulfate 90 mcg/actuation aerosol inhaler 2 puff inhalation Q6H PRN PRN Asthma 03/24/16 [History Confirmed 06/30/23] esomeprazole magnesium 40 mg capsule,delayed release 40 mg PO QHS 03/24/16 [History Confirmed 06/30/23] fluticasone propionate 230 mcg-salmeterol 21 mcg/actuation HFA inhaler 2 puff inhalation BID 04/01/20 [History Confirmed 06/30/23] thyroid (pork) 180 mg tablet ([place] Thyroid) 150 - 180 mg PO DAILY 03/23/22 [History Confirmed 06/30/23] semaglutide 1 mg/dose (2 mg/1.5 mL) subcutaneous pen injector (Ozempic) 1 mg subcut QWEEK 04/21/23 [History Confirmed 06/30/23] levocetirizine 5 mg tablet (Xyzal) 5 mg PO QHS 06/10/23 [History Confirmed 06/30/23] Subjective Details: Patient is here to follow-up after EGD with pH probe. She is still having significant reflux. Objective Details: Abdomen is soft and nontender. 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 Wears glasses Surgical History S/P eye surgery S/P hysterectomy S/P LEEP Family History Father Prostate cancerGrandfather Prostate cancer Liver cancer Social History Smoking Status: Former smoker alcohol intake: never substance use type: does not use caffeine: Yes what type of physical activity do you participate in: none seatbelt use: always do you feel safe at home: Yes additional social history: -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 I discussed hiatal hernia repair with fundoplication in detail with the patient. I discussed the risks including but not limited to bleeding, infection, injury to other organs, esophageal perforation, slipped wrap and gas bloat syndrome. Patient understands all the risks. I will order the patient manometry and as long as the manometry is normal I will schedule her for Humera fundoplication and hiatal hernia repair. Zack Villanueva MD Pager: [facility] [address] [place] [address], [address] [place] [address] Office: I have examined the patient and the H&P has been reviewed. There are no clinical changes since date of exam.
[2023-07-23] MEDS: Lactated Ringers 1,000 ML 15 ML IV (06:41)
[2023-07-23] MEDS: Clindamycin 900 MG/50 ML BAG 75 MG IV (07:28)
[2023-07-23] MEDS: Lubricating Jelly 60 GM Tube 30 GM (08:50)
[2023-07-23] MEDS: Bupivacaine Mpf 0.5% 30 ML VIAL (09:00)
--- NOTE | 2023-07-23 09:30 | PCM.OPRPT ---
Report of Operation Date of Procedure: 07/23/23 Pre-Operative Diagnosis: Hiatal hernia and acid reflux Post-Operative Diagnosis: Same Surgery/Procedure Performed:: Laparoscopic hiatal hernia repair with Humera fundoplication EGD Type of Anesthesia: General/Regional Specimen's removed: None Estimated Blood Loss (mL): 10 Description of Procedure: Patient was brought back to the operating room and general anesthesia was induced. The abdomen was prepped and draped in usual sterile fashion. A small incision was made in the right upper quadrant and Visiport technique was used to access the abdomen and insufflate the abdomen to 15 mmHg. Next under direct visualization a 12 mm port was placed in the midline superior umbilicus. Another incision was made in the epigastric region and then under direct visualization the Rodolfo liver retractor was placed into the abdomen and retracted the left lobe of the liver. Patient was then placed in reverse Trendelenburg position. A 5 mm port was placed in the left upper quadrant and the left mid axillary line. The stomach and esophagus were encountered. Starting with the right crura the crura was dissected and then the esophagus was teased from and inferiorly. The stomach was then retracted toward the patient's right and the short gastrics were taken down using the harmonic scalpel. The adhesions to the left crura were then taken down. A [place] was then placed around the esophagus and the esophagus and stomach were elevated. The dissection was carried into the mediastinum and the esophagus was mobilized. The vagus nerves were identified and spared. Next the crura was approximated using 3 Surgidac sutures. Next the stomach was pulled behind the esophagus and then a 52 [place] bougie was placed through the esophagus and into the stomach under direct visualization. The stomach was then wrapped around the esophagus and sutured to itself completing the Humera fundoplication. The bougie was then removed. The posterior stomach was sutured to the crura. Next an EGD was performed. The abdomen was instilled with saline and the patient was leveled. The EGD scope was placed through the mouth and into the esophagus. It was easily passed into the stomach. It was retroflexed and the wrap appeared stable with minimal bleeding. The stomach was then suctioned and the scope was removed. The abdomen was then irrigated and suctioned dry. There appeared to be good hemostasis and everything appeared to be in order. There was no bleeding from the spleen. Next the midline port was removed and using a Pete Hankins needle and interrupted 0 Vicryl sutures the fascia was closed. Next all of the ports were removed and the Rodolfo liver retractor. The skin incisions were injected with local anesthetic and closed with interrupted 4-0 Monocryl sutures. Steri-Strips and bandages were applied. Patient was taken to PACU in stable condition and tolerated the procedure well. Admit VTE Documentation VTE Mechan Device Prophylaxis: SCD's
--- NOTE | 2023-07-23 09:41 | DCINST_ITS ---
Discharge Instructions Diet Discharge Diet: - (Full liquid diet until follow up) Activity Discharge Activity: May Drive (in 2-3 days and when off narcotics) and May Shower (tomorrow with bandages in place) Lifting Restrictions: 15 lbs for 4 weeks Dressing / Incision Call your doctor if your incision/area has: Continuous Slow Oozing, Sudden Increased Bleeding, Increased Pain/ Swelling, Increased Redness, Foul Smelling Discharge and Swelling at the incision site Call your doctor if you observe: Fever of 101 or Higher and Inability to have a bowel movement Remove Dressing in: 2 days (Remove clear dressing in 2 days, remove steri strips in 7-10 days) Cleanse incision/area with: Soap & Water Follow Up Care Please Follow Up With: Zack Villanueva MD When: Please call to schedule 1 week follow up appointment. [phone] Test Results: Test results from this visit will be discussed in further detail at your follow- up appointment, if applicable. Discharge Plan Admission Attending Provider: Zack Villanueva Primary Care Provider: Gerardo Godoy Discharge Orders/Prescriptions Prescriptions: New hydrocodone-acetaminophen 7.5-325 mg/15 mL Solution 15 ml PO Q4H PRN PRN (Reason: Pain Score 4-10) 5 Days Qty: 120 0RF Continued [place] Thyroid 180 mg tablet 150 - 180 mg PO DAILY Rx Instructions: Wed FRI 150MG SAT 180MG Ozempic 1 mg/dose (2 mg/1.5 mL) pen injector 1 mg subcut QWEEK albuterol sulfate 1 INHALER inhaler 2 puff inhalation Q6H PRN PRN (Reason: Asthma) fluticasone propion-salmeterol 230-21 mcg/actuation HFA aerosol inhaler 2 puff inhalation BID levocetirizine [Xyzal] 5 mg tablet 5 mg PO QHS spironolactone 100 mg tablet 100 mg PO QHS Patient Comments: TAKE ONE TABLET EVERY NIGHT WITH A FULL GLASS OF WATER Discontinued esomeprazole magnesium 40 MG capsule 40 mg PO QHS Referrals / Follow Up: Gerardo Godoy MD [Primary Care Provider] - Disposition Disposition (needs filled in before D/C Order can be placed): Home, Self Care
[2023-07-23] MEDS: Ketorolac 15 MG/ML Vial IV ×2 (10:13→20:11)
[2023-07-23] MEDS: 0.9% Normal Saline 1,000 ML 100 ML IV ×2 (13:41→23:45)
[2023-07-23] MEDS: Morphine 2 MG/ML Syringe IV ×2 (13:41→23:48)
[2023-07-23] MEDS: Albuterol 2.5 MG/3 ML VIAL.NEB. INHALATION (19:19)
[2023-07-23] MEDS: Budesonide Respules 0.5 MG/2 ML AMPUL.NEB. INHALATION (19:20)
[2023-07-24 01:08] VITALS: BP 120/59; PULSE 67; RESP 16; TEMP 36.6; O2SAT 96
[2023-07-24 05:08] VITALS: BP 110/59; PULSE 65; RESP 16; TEMP 36.6; O2SAT 95
[2023-07-24] MEDS: Ketorolac 15 MG/ML Vial IV (05:28)
[2023-07-24 07:27] VITALS: PULSE 88; RESP 18; O2SAT 97
[2023-07-24] MEDS: Albuterol 2.5 MG/3 ML VIAL.NEB. INHALATION (07:27)
[2023-07-24] MEDS: Budesonide Respules 0.5 MG/2 ML AMPUL.NEB. INHALATION (07:27)
--- NOTE | 2023-07-24 07:31 | PCM.PN.SRG ---
Subjective Subjective Patient seen and examined during AM rounds. She reported that she had some soreness, but overall is feeling well. She describes some swelling of her abdomen around her incisions. She has a number of questions related to her postoperative dietary restrictions. Objective Data Objective Data Vital Signs: Vital Signs Temp Pulse Resp BP Pulse Ox O2 Del Method 97.9 F 65 16 110/59 L 95 Room Air 07/24/23 05:08 07/24/23 05:08 07/24/23 05:08 07/24/23 05:08 07/24/23 05:08 07/24/23 05:08 Oxygen Delivery Method Room Air Weight: 215 lb 6.4 oz Body Mass Index (BMI) 35.8 Intake & Output: Intake and Output for Last 24 Hours 07/22/23 07/23/23 07/24/23 23:59 23:59 23:59 Intake Total 2181.5 / 2181.5 Balance 2181.5 / 2181.5 Lab / Micro Data 07/19/23 14:21 Physical Exam Const oriented x3 and no apparent distress Resp normal respiratory effort GI GI Narrative: Mildly distended, operative dressings intact with minimal drainage, soft, appropriately tender about incisions Assessment & Plan Assessment/Plan (1) Status post laparoscopic Humera fundoplication: PLAN: This is a 48-year-old female postoperative day 1 from laparoscopic hiatal hernia repair with Humera fundoplication. Overall she is doing as expected. Her exam is as expected. I reviewed with her her postoperative dietary recommendations. She will be advanced to a clear liquid diet. If she tolerates this we will plan to discharge her on a full liquid diet for 1 week. She is then to follow-up with Dr. Villanueva as an outpatient Charges/Coding Visit Charges Inpatient E&M: 79257 Subs Hosp L2
[2023-07-24 08:54] VITALS: BP 107/61; PULSE 74; RESP 16; TEMP 36.8; O2SAT 98
[2023-07-24] MEDS: 0.9% Normal Saline 1,000 ML 100 ML IV (09:07)
[2023-07-24] MEDS: Thyroid 60 MG Tablet 180 MG PO (09:07)
[2023-07-24 14:17] VITALS: BP 107/66; PULSE 72; RESP 16; TEMP 36.8; O2SAT 99
--- NOTE | 2023-07-24 15:12 | PCM.DC.SUM ---
Providers Date of Admission: 07/23/23 Primary Care Physician: Dr. Gerardo Godoy MD Reason For Visit: Laparoscopic, Humera Fundoplication Medications at Discharge Home Medications albuterol sulfate 90 mcg/actuation aerosol inhaler 2 puff inhalation Q6H PRN PRN Asthma 03/24/16 fluticasone propionate 230 mcg-salmeterol 21 mcg/actuation HFA inhaler 2 puff inhalation BID 04/01/20 thyroid (pork) 180 mg tablet ([place] Thyroid) 150 - 180 mg PO DAILY 03/23/22 semaglutide 1 mg/dose (2 mg/1.5 mL) subcutaneous pen injector (Ozempic) 1 mg subcut QWEEK 04/21/23 levocetirizine 5 mg tablet (Xyzal) 5 mg PO QHS 06/10/23 oxycodone 5 mg/5 mL oral solution 5 mg (5 mL) PO Q4H PRN Pain Score 6-10 5 days #100 mL 07/23/23 spironolactone 100 mg tablet 100 mg PO QHS 07/23/23 Hospital Course Operations - (Laparoscopic hiatal hernia repair with Humera fundoplication 07/23/2023) Summary of Care Provided Hospital Course: Patient is a 48-year-old female who underwent laparoscopic hiatal hernia repair with Humera fundoplication by Dr. Villanueva on 07/23/2023 in uncomplicated fashion. She was admitted postoperatively for overnight observation. Morning of postoperative day 1 patient was advanced to a clear liquid diet. She tolerated this well without any difficulty swallowing. Therefore by the afternoon of postoperative day 1 patient requested discharge to home. Postoperative expectations?specifically dietary restrictions?were reviewed. Patient expressed comfort with this information and confirms she will call our office to set up a follow-up visit. Physical Exam Const alert, oriented x3 and no apparent distress General Appearance: cooperative Resp normal respiratory effort GI GI Narrative: Mildly distended, operative dressings intact with minimal strikethrough. Appropriately tender about incisions with palpation. Weight / BMI Weight Weight: 215 lb 6.4 oz Body Mass Index (BMI) 35.8 ABG / Lab / Microbiology Data 07/19/23 14:21 D/C Instructions Discharge Diet: - (Full liquid diet until follow up) Call your doctor if your incision/area has: Continuous Slow Oozing, Sudden Increased Bleeding, Increased Pain/ Swelling, Increased Redness, Foul Smelling Discharge and Swelling at the incision site Call your doctor if you observe: Fever of 101 or Higher and Inability to have a bowel movement Cleanse incision/area with: Soap & Water Please Follow Up With: Zack Villanueva MD When: Please call to schedule 1 week follow up appointment. [phone] Meaningful Use Info Meaningful Use Diagnoses (Choose all that apply): None applicable Discharge Plan Admission Admit Date/Time: 07/23/23 09:38 Attending Provider: Zack Villanueva Primary Care Provider: Gerardo Godoy Discharge Orders/Prescriptions Prescriptions: New oxycodone 5 mg/5 mL solution 5 mg PO Q4H PRN (Reason: Pain Score 6-10) 5 Days Qty: 100 0RF Continued [place] Thyroid 180 mg tablet 150 - 180 mg PO DAILY Rx Instructions: Wed FRI 150MG SAT 180MG Ozempic 1 mg/dose (2 mg/1.5 mL) pen injector 1 mg subcut QWEEK albuterol sulfate 1 INHALER inhaler 2 puff inhalation Q6H PRN PRN (Reason: Asthma) fluticasone propion-salmeterol 230-21 mcg/actuation HFA aerosol inhaler 2 puff inhalation BID levocetirizine [Xyzal] 5 mg tablet 5 mg PO QHS spironolactone 100 mg tablet 100 mg PO QHS Patient Comments: TAKE ONE TABLET EVERY NIGHT WITH A FULL GLASS OF WATER Discontinued esomeprazole magnesium 40 MG capsule 40 mg PO QHS Referrals / Follow Up: Gerardo Godoy MD [Primary Care Provider] - Disposition Disposition (needs filled in before D/C Order can be placed): Home, Self Care Charges/Coding Visit Charges Inpatient E&M: 06751 Disch Hosp
== END 2023-07-24 15:37 | disposition home or self-care (01) ==
LOC: SDC 13:03 → MS3 13:03
PROVIDERS: Anesthesiology; Admitting Provider Surgery; PCP Family Medicine; Referring Provider Surgery; Visit Provider Surgery
PROC: (CPT 43325; principal; 2023-07-23 07:10)
DX: K44.9 Diaphragmatic hernia without obstruction or gangrene (principal); K21.9 Gastro-esophageal reflux disease without esophagitis; Z87.891 Personal history of nicotine dependence; Z79.899 Other long term (current) drug therapy; Z79.890 Hormone replacement therapy; E06.3 Autoimmune thyroiditis; J45.909 Unspecified asthma, uncomplicated
CPT/HCPCS: 43280; 00790; 36415; 80076; 84443; 85027; 85610; 85730; 93005; 94640; 96361; 96374; 96375; 96376; 99221; J7030; J7120; G0378; J2405

== ENCOUNTER → 2024-07-17 | Outpatient (CLI) | payer OTHER, SELFPAY ==
--- NOTE | 2024-07-17 15:18 | BI_ITS ---
MAMMOGRAPHY - BILATERAL SCREENING REASON FOR EXAM: Female, 49 years old. Routine annual screening examination. PERTINENT HISTORY: Non-contributory. TECHNIQUE: Digital bilateral breast farhan (3D mammographic acquisition) in the CC and MLO projections. 2-D mediolateral oblique (MLO) and craniocaudad (CC) views of both breasts were obtained. CAD: Full Field Digital Mammography with Computer Added Detection was performed. COMPARISON: Comparison is made with prior study July 16, 2023 and July 09, 2022. FINDINGS: Breast Composition: The breasts are heterogeneously dense, which may obscure small masses. There are no dominant masses or suspicious calcifications. Stable 1 cm nodular density in the deep central portion of the left breast. No other significant abnormalities are identified. There has been no significant change since the prior study. BI/SCRN MAMM (CAD)W/FARHAN BILAT IMPRESSION: Stable bilateral screening mammogram. Yearly follow-up mammogram recommended. (A) ASSESSMENT CATEGORY: BIRADS Category 2: Benign. A letter regarding these results will be sent to the patient by the facility within 30 days. Approximately 10% of breast cancers are not detected by mammography. A normal mammogram should not delay biopsy of a clinically suspicious abnormality. [id number] Electronically Signed: Jesus Chiang MD at 8:08 EDT ,
== END | disposition home or self-care (01) ==
LOC: OPBI 15:17
PROVIDERS: PCP Family Medicine; Referring Provider Nurse Practitioner Women's Health; Visit Provider Nurse Practitioner Women's Health
DX: Z12.31 Encounter for screening mammogram for malignant neoplasm of breast (principal)
CPT/HCPCS: 77063; 77067

== ENCOUNTER → 2025-07-18 | Outpatient (CLI) | payer OTHER, SELFPAY ==
--- NOTE | 2025-07-18 16:25 | BI_ITS ---
EXAM: SCRN MAMM (CAD)W/FARHAN BILAT DATE: 07/18/2025 CLINICAL HISTORY: F, Age 50 y/o , SCREENING No family history. TECHNIQUE: SCRN MAMM (CAD)W/FARHAN BILAT COMPARISON: Prior exam(s) dated July 17, 2024.. FINDINGS: TISSUE DENSITY: The breasts are heterogeneously dense, which may obscure small masses. Bilateral Breast Mammographic Findings: No significant masses, calcifications or other abnormalities are identified. No suspicious masses, areas of developing architectural distortion, or suspicious calcifications. There has been no significant interval change. BI/SCRN MAMM (CAD)W/FARHAN BILAT IMPRESSION: Stable examination. OVERALL FINAL ASSESSMENT BI-RADS 1: NEGATIVE. RECOMMENDATION: Routine annual follow-up in 1 Year A letter with findings and recommendations will be mailed to the patient. Reading Location: [id number]
== END | disposition home or self-care (01) ==
LOC: OPBI 16:18
PROVIDERS: PCP Family Medicine; Referring Provider Nurse Practitioner Women's Health; Visit Provider Nurse Practitioner Women's Health
DX: Z12.31 Encounter for screening mammogram for malignant neoplasm of breast (principal)
CPT/HCPCS: 77063; 77067